=== PATIENT | male | born 1950 | race Caucasian/White ===

== ENCOUNTER 2023-06-16 13:43 | Emergency (ER) | payer SELFPAY ==
[~2023-06-16] VITALS: Ht 172.7 cm; Wt 75.0 kg
[2023-06-16 13:47] VITALS: O2SAT 99
[2023-06-16] MEDS ORDERED: CEFTRIAXONE SODIUM 1 G/VIAL IM ONE (14:00)
[2023-06-16] MEDS ORDERED: IBUPROFEN 400MG TABLET PO ONE (14:00)
[2023-06-16] MEDS ORDERED: LIDOCAINE HCL 1% 20ML VIAL (Pyxis) INJ INFIL ONE (14:00)
[2023-06-16] MEDS ORDERED: CEPH500C2 MT (17:05)
[2023-06-16] MEDS ORDERED: IBUP-2028 MT (17:05)
[2023-06-16 19:00] VITALS: TEMP 98.2
[2023-06-16] MEDS ORDERED: LIDOCAINE HCL 1% 20ML VIAL (Pyxis) INJ INFIL NR (19:15)
[2023-06-16] MEDS ORDERED: CEFTRIAXONE SODIUM 1 G/VIAL IM NR (19:15)
[2023-06-16] MEDS ORDERED: IBUPROFEN 400MG TABLET PO NR (19:15)
[2023-06-16 19:22] VITALS: BP 141/75; PULSE 83; RESP 18
== END 2023-06-16 19:00 | disposition home or self-care (01) ==
LOC: ER 14:08
DX: M70.22 Olecranon bursitis, left elbow (principal); Y93.89 Activity, other specified
CPT/HCPCS: 99283; 73080; 96372; J0696; J3490

== ENCOUNTER 2023-11-28 01:18 | Emergency (ER) | payer OTHER ==
[~2023-11-28] VITALS: Ht 182.9 cm; Wt 82.0 kg
[~2023-11-28 01:18] MED LIST: CEPH500C2 MT; IBUP-2028 MT
[2023-11-28 02:01] LABS: BASOPHILS % 0.3 % (0.0-2.0); EOSINOPHILS % 2.1 % (0.0-5.0); HEMATOCRIT. 33.1 % (42.0-52.0); HEMOGLOBIN. 11.2 g/dL (14.0-18.0); LYMPHOCYTES % 24.5 % (20.0-50.0); MEAN CORPUSCULAR HEMOGLOBIN 27.2 pg (28.0-32.0); MEAN CORPUSCULAR HGB CONC 33.7 g/dL (31.0-37.0); MEAN CORPUSCULAR VOLUME 80.8 fL (80.0-94.0); MEAN PLATELET VOLUME 8.7 fl (7.4-10.4); MONOCYTES % 9.2 % (2.0-8.0); NEUTROPHILS % 63.9 % (40.0-76.0); PLATELET 57 x1000/uL (130-400); RED CELL DISTRIBUTION WIDTH 23.2 % (11.6-14.6); WHITE BLOOD COUNT 2.7 x1000/uL (4.5-11.0)
[2023-11-28 02:03] LABS: ADD RBC MORPHOLOGY YES; DIFFERENTIAL COMMENT 1
[2023-11-28 02:10] LABS: CHLORIDE 105 mEq/L (98-107); POTASSIUM 3.8 mEq/L (3.5-5.1); SODIUM 136 mEq/L (136-145)
[2023-11-28 02:11] LABS: CALCIUM 9.5 mg/dL (8.7-10.4); CARBON DIOXIDE 27 mEq/L (21-32)
[2023-11-28 02:16] LABS: CREATININE 0.7 mg/dL (0.6-1.3); GLUCOSE 288 mg/dL (70-105); UREA NITROGEN BLOOD 14 mg/dL (9-23)
[2023-11-28 02:18] LABS: ACETAMINOPHEN < 2 ug/mL (10-30); ALANINE AMINOTRANSFERASE 18 IU/L (10-49); ALBUMIN 3.8 g/dL (3.2-4.8); ASPARTATE AMINOTRANSFERASE 18 IU/L (<34); BILIRUBIN DIRECT 0.3 mg/dL (<=3.0); BILIRUBIN TOTAL 0.6 mg/dL (0.1-1.0); PROTEIN TOTAL 7.5 g/dL (6.0-8.3)
[2023-11-28 02:26] LABS: ETHANOL BLOOD < 10 mg/dL (<10)
[2023-11-28 02:52] LABS: OVALOCYTES 2+; PLATELET ESTIMATE MARKEDLY DECREASED; TARGET CELLS 1+; TEAR DROP CELLS 1+
[2023-11-28 02:54] LABS: GIANT PLATELETS FEW
[2023-11-28 04:07] LABS: CLARITY URINE CLEAR (CLEAR); COLOR URINE DARK YELLOW (YELLOW); GLUCOSE URINE 2+ (NEGATIVE); KETONES URINE TRACE (NEGATIVE); LEUKOCYTE ESTERASE URINE NEGATIVE (NEGATIVE); NITRITE URINE NEGATIVE (NEGATIVE); OCCULT BLOOD URINE NEGATIVE (NEGATIVE); PROTEIN URINE NEGATIVE (NEGATIVE); SPECIFIC GRAVITY URINE 1.025 (1.005-1.030)
[2023-11-28 04:11] LABS: *AMPHETAMINES SCREEN URINE NEGATIVE (NEGATIVE)
[2023-11-28 04:12] LABS: *BARBITURATES SCREEN URINE NEGATIVE (NEGATIVE); *BENZODIAZEPINES SCREEN URINE NEGATIVE (NEGATIVE); *COCAINE SCREEN URINE NEGATIVE (NEGATIVE); CANNABINOID URINE SCREEN NEGATIVE (NEGATIVE); ECSTASY MDMA SCREEN URINE CONF.TEST INDICATED (NEGATIVE); METHADONE URINE SCREEN NEGATIVE (NEGATIVE); OPIATES URINE SCREEN NEGATIVE (NEGATIVE); PHENCYCLIDINE URINE SCREEN NEGATIVE (NEGATIVE)
[2023-11-28 04:32] LABS: BACTERIA URINE TRACE; MUCUS URINE 1+ /lpf (NONE/TRACE); RBC URINE NONE SEEN /hpf (0-2); SQUAMOUS EPITHELIAL CELL URINE RARE /lpf (RARE/1+); WBC URINE 0-2 /hpf (0-2)
[2023-11-28 08:30] VITALS: O2SAT 100
[2023-11-28 16:05] VITALS: BP 149/80; PULSE 76; RESP 16; TEMP 98.9
== END 2023-11-28 18:35 | disposition home or self-care (01) ==
LOC: ER 01:18
DX: F28 Other psychotic disorder not due to a substance or known physiological condition (principal); E11.9 Type 2 diabetes mellitus without complications; Z20.822 Contact with and (suspected) exposure to COVID-19
CPT/HCPCS: 36415; 80048; 80076; 80305; 80307; 80320; 80329; 81003; 85025; 87426; 99285; G0480

== ENCOUNTER 2024-12-01 22:06 | Emergency (ER) | payer OTHER ==
[~2024-12-01] VITALS: Ht 175.3 cm; Wt 59.0 kg
[2024-12-01 22:25] VITALS: O2SAT 98
[2024-12-01 22:55] VITALS: BP 113/55; PULSE 75; RESP 15; TEMP 36.4; O2SAT 98
[2024-12-01] MEDS ORDERED: SODIUM CHLORIDE 0.9% 1,000 ML IV ONE (23:15)
== END 2024-12-01 23:40 | disposition left against medical advice (07) ==
LOC: ER 22:06 → EDBEDREQ 23:35 → ER 23:40
DX: E11.65 Type 2 diabetes mellitus with hyperglycemia (principal); I10 Essential (primary) hypertension; J45.909 Unspecified asthma, uncomplicated; Z88.6 Allergy status to analgesic agent; Z79.899 Other long term (current) drug therapy
CPT/HCPCS: 99283; J7030